=== PATIENT | female | born 1985 | race American Indian/Alaskan Native ===

== ENCOUNTER 2017-02-14 14:14 | Emergency (ER) | payer SELFPAY ==
[2017-02-14 15:00] LABS: Basophils % (Auto) 0.9 % (0.0-1.8); Hematocrit 40.3 % (30.3-42.9); Hemoglobin 13.5 gm/dl (10.1-14.3); Mean Corpuscular HGB Conc 34 % (30-34); Mean Corpuscular Hemoglobin 30 pg (28-32); Mean Corpuscular Volume 89 fl (79-97); Platelet Count 247 K/mm3 (140-440); Red Blood Count 4.52 M/mm3 (3.65-5.03); Red Cell Distribution Width 13.6 % (13.2-15.2); White Blood Count 5.8 K/mm3 (4.5-11.0)
[2017-02-14 15:12] LABS: Anion Gap 18 mmol/L; Blood Urea Nitrogen 12 mg/dL (7-17); Calcium 8.6 mg/dL (8.4-10.2); Carbon Dioxide 25 mmol/L (22-30); Chloride 99.1 mmol/L (98-107); Glucose 83 mg/dL (65-100); Sodium 138 mmol/L (137-145)
--- NOTE | 2017-02-14 21:23 | Emergency Department Report ---
ED Chest Pain HPI - General Chief Complaint: Extremity Injury, Lower Stated Complaint: LT LEG PAIN Time Seen by Provider: 02/14/17 21:00 Source: patient Mode of arrival: Ambulatory Limitations: No Limitations - History of Present Illness MD Complaint: chest pain -: Gradual Onset: during rest Pain Location: right chest Pain Radiation: none Severity: mild Severity scale (0 -10): 1 Quality: tightness Consistency: intermittent, now resolved Improves With: nothing Worsens With: nothing re: denies: nausea, vomting, diaphoresis, dyspnea, sense of impending doom Other Symptoms: denies: cough, fever, syncope, rash, acid taste in mouth, leg swelling, palpitations, burping Treatments Prior to Arrival: none - Related Data On Oral Contraceptives: No Home Medications Medication Instructions Recorded Confirmed Last Taken Vit-Fe Fumar-FA [ 1 tab PO QDAY 01/15/15 01/15/15 Unknown Vitamin] Previous Rx's Medication Instructions Recorded Last Taken Type Acetaminophen/Codeine [Tylenol #3] 1 tab PO Q6H PRN #12 tab 01/15/15 Unknown Rx Allergies Allergy/AdvReac Type Severity Reaction Status Date / Time nitrofurantoin AdvReac PALPITATION Verified 01/15/15 12:42 [From Macrobid] S/SWELL nitrofurantoin AdvReac PALPITATION Verified 01/15/15 12:42 macrocrystalline S/SWELL [From Macrobid] Heart Score - HEART Score History: Slightly suspicious EKG: Normal Age: < 45 Risk factors: No known risk factors Troponin: < normal limit HEART Score: 0 - Critical Actions Critical Actions: 0-3 pts:0.9-1.7%risk of adverse cardiac event.Candidate for discharge ED Review of Systems ROS: Stated complaint: LT LEG PAIN Other details as noted in HPI Comment: All other systems reviewed and negative ED Past Medical Hx - Past Medical History Previous Medical History?: No - Surgical History Past Surgical History?: No - Social History Smoking Status: Former Smoker Substance Use Type: None - Medications Home Medications: Home Medications Medication Instructions Recorded Confirmed Last Taken Type Acetaminophen/Codeine [Tylenol #3] 1 tab PO Q6H PRN #12 tab 01/15/15 Unknown Rx Vit-Fe Fumar-FA [ 1 tab PO QDAY 07/24/15 07/24/15 Unknown History Vitamin] ED Physical Exam - General Limitations: No Limitations General appearance: alert, in no apparent distress - Head Head exam: Present: atraumatic, normocephalic - Eye Eye exam: Present: normal appearance - ENT ENT exam: Present: mucous membranes moist - Neck Neck exam: Present: normal inspection - Respiratory Respiratory exam: Present: normal lung sounds bilaterally. Absent: respiratory distress - Cardiovascular Cardiovascular Exam: Present: regular rate, normal rhythm. Absent: systolic murmur, diastolic murmur, rubs, gallop - GI/Abdominal GI/Abdominal exam: Present: soft, normal bowel sounds - Extremities Exam Extremities exam: Present: normal inspection - Back Exam Back exam: Present: normal inspection - Neurological Exam Neurological exam: Present: alert, oriented X3 - Psychiatric Psychiatric exam: Present: normal affect, normal mood - Skin Skin exam: Present: warm, dry, intact, normal color. Absent: rash ED Course Vital Signs 02/14/17 14:21 Temperature 97.7 F Respiratory 20 Rate Blood Pressure 115/72 O2 Sat by Pulse 99 Oximetry RYLAN score - Rylan Score Age > 65: (0) No Aspirin use within the Past 7 Days: (0) No 3 or more CAD Risk Factors: (0) No 2 or more Angina events in past 24 hrs: (0) No Known CAD with more than 50% Stenosis: (0) No Elevated Cardiac Markers: (0) No ST Deviation Greater than 0.5mm: (0) No RYLAN Score: 0 ED Medical Decision Making - Lab Data Result diagrams: 02/14/17 14:43 02/14/17 14:43 Critical care attestation.: If time is entered above; I have spent that time in minutes in the direct care of this critically ill patient, excluding procedure time. ED Disposition Clinical Impression: Chest pain Disposition: DC-01 TO HOME OR SELFCARE Is pt being admited?: No Does the pt Need Aspirin: No Condition: Good Instructions: Chest Pain (ED) Referrals: PRIMARY CARE,MD [Primary Care Provider] - 3-5 Days Time of Disposition: 21:23
[2017-02-14 21:34] VITALS: BP 113/58
== END 2017-02-14 21:43 | disposition home or self-care (01) ==
LOC: ED 14:14
DX: R07.9 Chest pain, unspecified (principal)
CPT/HCPCS: 36415; 80048; 84484; 85025; 93005; 93010

== ENCOUNTER 2017-07-15 01:48 | Inpatient (IN) | payer OTHER ==
[2017-07-15 03:26] LABS: Basophils % (Auto) 0.5 % (0.0-1.8); Eosinophils # (Auto) 0.1 K/mm3 (0.0-0.4); Eosinophils % (Auto) 1.4 % (0.0-4.3); Hematocrit 37.4 % (30.3-42.9); Hemoglobin 12.8 gm/dl (10.1-14.3); Lymphocytes # (Auto) 2.1 K/mm3 (1.2-5.4); Lymphocytes % (Auto) 22.2 % (13.4-35.0); Mean Corpuscular HGB Conc 34 % (30-34); Mean Corpuscular Hemoglobin 30 pg (28-32); Mean Corpuscular Volume 89 fl (79-97); Monocytes # (Auto) 0.9 K/mm3 (0.0-0.8); Monocytes % (Auto) 9.4 % (0.0-7.3); Platelet Count 247 K/mm3 (140-440); Red Blood Count 4.23 M/mm3 (3.65-5.03); Red Cell Distribution Width 13.1 % (13.2-15.2)
[2017-07-15 03:45] LABS: Alanine Aminotransferase 10 units/L (7-56); BUN/Creatinine Ratio 18; Blood Urea Nitrogen 9 mg/dL (7-17); Hemolysis Index 1
[2017-07-15 04:07] LABS: Calcium 8.9 mg/dL (8.4-10.2)
[2017-07-15 08:21] LABS: Bilirubin,Urine NEG (Negative); Blood,Urine SM (Negative); Color,Urine Yellow (Yellow); Mucus,Urine FEW /HPF; Nitrite,Urine NEG (Negative); Protein,Urine <15 mg/dL mg/dL (Negative); Urobilinogen,Urine < 2.0 mg/dL (<2.0)
[2017-07-15 08:24] LABS: HCG Qualitative,Urine Negative (Negative)
[2017-07-15] MEDS ORDERED: ZOFRAN IV ONE (12:12)
[2017-07-15] MEDS ORDERED: SUBLIMAZE IV ONE (12:12)
--- NOTE | 2017-07-15 12:19 | Emergency Department Report ---
HPI - General Chief Complaint: Abdominal Pain Time Seen by Provider: 07/15/17 11:57 - HPI HPI: Room 23 The patient is a 32-year-old female presenting with a chief complaint of right flank pain. The patient states for the past 2 days she's had a constant sharp pain in her right flank. Patient is to nausea but denies vomiting. Patient denies dysuria and states she does not know if she's had material patient was recently on her cycle. Patient denies any history of fever or preceding trauma. The patient gives her pain a score of 10/10 Location: Right flank Duration: 2 days Quality: Sharp Severity: 10/10 Modifying factors: [see above] Context: [see above] Mode of transportation: [not driving] ED Past Medical Hx - Past Medical History Previous Medical History?: No - Surgical History Past Surgical History?: No - Family History Family history: no significant - Social History Smoking Status: Never Smoker Substance Use Type: None (denies illicit drug use), Alcohol (occasional) - Medications Home Medications: Home Medications Medication Instructions Recorded Confirmed Last Taken Type Acetaminophen/Codeine [Tylenol #3] 1 tab PO Q6H PRN #12 tab 01/15/15 Unknown Rx Vit-Fe Fumar-FA [ 1 tab PO QDAY 01/15/15 01/15/15 Unknown History Vitamin] ED Review of Systems ROS: Stated complaint: ABDOMINAL PAIN Other details as noted in HPI Constitutional: denies: fever Gastrointestinal: abdominal pain, nausea. denies: vomiting Genitourinary: denies: dysuria Musculoskeletal: back pain Physical Exam - Physical Exam Vital Signs: Vital Signs 07/15/17 01:55 Temperature 99.2 F Pulse Rate 86 Respiratory 17 Rate Blood Pressure 107/55 O2 Sat by Pulse 99 Oximetry Physical Exam: GENERAL: The patient is well-developed well-nourished female lying on stretcher in left lateral decubitus position appearing to be in moderate discomfort. [] HEENT: Normocephalic. Atraumatic. Extraocular motions are intact. Patient has moist mucous membranes. NECK: Supple. Trachea midline CHEST/LUNGS: Clear to auscultation. There is no respiratory distress noted. HEART/CARDIOVASCULAR: Regular. There is no tachycardia. There is no gallop rub or murmur. ABDOMEN: Abdomen is soft, with tenderness to palpation in the epigastric and right upper quadrants. There is no tenderness to palpation in the left upper quadrant, left lower quadrant, suprapubic region or right lower quadrant. Patient has normal bowel sounds. There is no abdominal distention. SKIN: There is no rash. There is no edema. There is no diaphoresis. NEURO: The patient is awake, alert, and oriented. The patient is cooperative. The patient has normal speech MUSCULOSKELETAL: There is right CVA tenderness. There is no evidence of acute injury. ED Course Vital Signs 07/15/17 01:55 Temperature 99.2 F Pulse Rate 86 Respiratory 17 Rate Blood Pressure 107/55 O2 Sat by Pulse 99 Oximetry ED Medical Decision Making - Lab Data Result diagrams: 07/15/17 01:57 07/15/17 02:21 Laboratory Tests 07/15/17 07/15/17 07/15/17 01:57 02:21 07:20 WBC 9.6 RBC 4.23 Hgb 12.8 Hct 37.4 MCV 89 MCH 30 MCHC 34 RDW 13.1 L Plt Count 247 Lymph % (Auto) 22.2 [place] % (Auto) 9.4 H Eos % (Auto) 1.4 Baso % (Auto) 0.5 Lymph # 2.1 [place] # 0.9 H Eos # 0.1 Baso # 0.0 Seg Neutrophils % 66.5 Seg Neutrophils # 6.4 Sodium 138 Potassium 4.3 Chloride 99.4 Carbon Dioxide 25 Anion Gap 18 BUN 9 Creatinine 0.5 L Estimated GFR > 60 BUN/Creatinine Ratio 18 Glucose 90 Calcium 8.9 Total Bilirubin 0.80 AST 12 ALT 10 Alkaline Phosphatase 55 Total Protein 7.0 Albumin 4.0 Albumin/Globulin Ratio 1.3 Urine Color Yellow Urine Turbidity Clear Urine pH 6.0 Ur Specific [employer] 1.013 Urine Protein <15 mg/dl Urine Glucose (UA) Neg Urine Ketones Neg Urine Blood Sm Urine Nitrite Neg Urine Bilirubin Neg Urine Urobilinogen < 2.0 Ur Leukocyte Esterase Neg Urine WBC (Auto) 1.0 Urine RBC (Auto) 3.0 U Epithel Cells (Auto) 2.0 Urine Mucus Few Urine HCG, Qual Negative - Radiology Data Radiology results: report reviewed (CT abdomen and pelvis), image reviewed (CT abdomen and pelvis) CT ABDOMEN PELVIS WITH AND WITHOUT CONTRAST: HISTORY: Right flank pain. COMPARISON: none. TECHNIQUE: Helical CT in 1.25mm intervals before and after IV contrast. Sagittal and coronal reconstructions. FINDINGS: Lung bases: There is patchy infiltrate in the posterior segment of the right lower lobe and trace right pleural effusion. There is also a nonocclusive pulmonary embolus identified at the right lung base. The left lung base is clear. Heart size is normal. Liver: Normal. Biliary system: Normal. Pancreas: Normal. Spleen: Normal. Kidneys/ureters/bladder: Normal. Adrenal glands: Normal. Aorta: Normal. Intestines: Normal. Appendix: Normal. Pelvic viscera: Normal. Ascites: None. Adenopathy: None. Musculoskeletal: Normal. IMPRESSION: A pulmonary embolus is partially imaged at the right lung base. There is patchy infiltrate in the right lower lobe and trace right pleural effusion. Consider further evaluation with CTA chest pulmonary embolus protocol. Unremarkable abdomen. These findings were discussed with Dr. Barron in the emergency department at 1315 hours. Transcribed By: TTR Dictated By: DAVID LERMA JR, MD Electronically Authenticated By: DAVID LERMA JR, MD Signed Date/Time: 07/15/171315 DD/ 13 TD/TT: 07/15/176 - Differential Diagnosis renal colic, cholelithiasis, aortic dissection, pyelonephritis Critical care attestation.: If time is entered above; I have spent that time in minutes in the direct care of this critically ill patient, excluding procedure time. ED Disposition Clinical Impression: Pulmonary embolus, right, Acute right flank pain Disposition: OP ADMIT IP TO THIS HOSP Is pt being admited?: Yes Does the pt Need Aspirin: No Condition: Fair Instructions: Abdominal Pain (ED) Referrals: PRIMARY CARE, [Primary Care Provider] - 3-5 Days Time of Disposition: 13:27 (hospitalist notified (Dr. Mason))
[2017-07-15] MEDS ORDERED: LOVENOX SUB-Q ONE (13:20)
--- NOTE | 2017-07-15 13:22 | Cat Scan Report ---
CT ABDOMEN PELVIS WITH AND WITHOUT CONTRAST: HISTORY: Right flank pain. COMPARISON: none. TECHNIQUE: Helical CT in 1.25mm intervals before and after IV contrast. Sagittal and coronal reconstructions. FINDINGS: Lung bases: There is patchy infiltrate in the posterior segment of the right lower lobe and trace right pleural effusion. There is also a nonocclusive pulmonary embolus identified at the right lung base. The left lung base is clear. Heart size is normal. Liver: Normal. Biliary system: Normal. Pancreas: Normal. Spleen: Normal. Kidneys/ureters/bladder: Normal. Adrenal glands: Normal. Aorta: Normal. Intestines: Normal. Appendix: Normal. Pelvic viscera: Normal. Ascites: None. Adenopathy: None. Musculoskeletal: Normal. IMPRESSION: A pulmonary embolus is partially imaged at the right lung base. There is patchy infiltrate in the right lower lobe and trace right pleural effusion. Consider further evaluation with CTA chest pulmonary embolus protocol. Unremarkable abdomen. These findings were discussed with Dr. Barron in the emergency department at 1315 hours.
[2017-07-15] MEDS ORDERED: DILAUDID IV ONE (13:24)
--- NOTE | 2017-07-15 13:24 | History and Physical Report ---
History of Present Illness Chief complaint: My side hurts History of present illness: 32 YO Female with no PMH presents to ED for evaluation. Pt states that she has experienced pain in her right side for the past 2 days. Pt states that pain is persistent, 10/10, sharp, and isolated to her right flank. Pain is worse with deep breathing, and not relieved with rest. Pt denies fever, chills, CP, Palpitations, Productive cough, hemoptysis, recent ill contacts, BRBPR, unintentional weight loss, or night sweats. Pt acknowledges family history of DVT/PE, and of family member due to PE within the past 3 months. Pt seen and evaluated in ED and found to have R Pulmonary Embolus. Pt underwent hypercoagulation workup, and then initiated on therapeutic anticoagulation. Pt admitted to medical floor. Past History Past Medical History: No medical history, other (reviewed) Past Surgical History: No surgical history, Other (reviewed) Social history: single, lives with family. denies: smoking, alcohol abuse, prescription drug abuse Family history: other (DVT, PE, secondary to PE,) Medications and Allergies Allergies Allergy/AdvReac Type Severity Reaction Status Date / Time nitrofurantoin AdvReac PALPITATION Verified 01/15/15 12:42 [From Macrobid] S/SWELL nitrofurantoin AdvReac PALPITATION Verified 01/15/15 12:42 macrocrystalline S/SWELL [From Macrobid] Home Medications Medication Instructions Recorded Confirmed Last Taken Type Acetaminophen/Codeine [Tylenol #3] 1 tab PO Q6H PRN #12 tab 01/15/15 Unknown Rx Vit-Fe Fumar-FA [ 1 tab PO QDAY 01/15/15 01/15/15 Unknown History Vitamin] Review of Systems Constitutional: no weight loss, no weight gain, no fever, no chills Ears, nose, mouth and throat: no ear pain, no ear discharge, no tinnitis, no decreased hearing, no nose pain Breasts: no change in shape, no swelling, no mass Cardiovascular: no chest pain, no orthopnea, no palpitations, no rapid/ irregular heart beat, no edema, no syncope, no lightheadedness, no shortness of breath Respiratory: no cough, no cough with sputum, no excessive sputum, no hemoptysis , no shortness of breath, no dyspnea on exertion Gastrointestinal: no abdominal pain, no nausea, no vomiting, no diarrhea, no constipation Genitourinary Female: flank pain, no dysmenorrhea, no pelvic pain, no menorrhagia, no dysuria, no urinary frequency, no urgency, no stress incontinence, no post void dribbling Rectal: no pain, no incontinence, no bleeding Musculoskeletal: no neck stiffness, no neck pain, no shooting arm pain, no arm numbness/tingling Integumentary: no rash, no pruritis, no redness, no sores, no wounds Neurological: no head injury, no transient paralysis, no paralysis, no weakness , no parathesias, no numbness, no tingling Psychiatric: no anxiety, no memory loss, no change in sleep habits, no sleep disturbances, no insomnia, no hypersomnia, no change in appetite Endocrine: no cold intolerance, no heat intolerance, no polyphagia, no excessive thirst, no polydipsia, no polyuria, no nocturia, no excessive sweating Hematologic/Lymphatic: no easy bruising, no easy bleeding, no lymphadenopathy, no lymphedema Allergic/Immunologic: no urticaria, no allergic rhinitis, no wheezing, no persistent infections, no anaphylaxis Exam - Constitutional Vitals: Temp Pulse Resp BP Pulse Ox 98.5 F 89 18 120/65 98 07/15/17 12:30 07/15/17 12:30 07/15/17 12:30 07/15/17 12:30 07/15/17 12:30 General appearance: Present: mild distress - EENT Eyes: Present: PERRL ENT: hearing intact, clear oral mucosa - Neck Neck: Present: supple, normal ROM - Respiratory Respiratory effort: normal Respiratory: bilateral: CTA - Cardiovascular Heart Sounds: Present: S1 & S2. Absent: rub, click - Extremities Extremities: pulses symmetrical, No edema Peripheral Pulses: within normal limits - Abdominal General gastrointestinal: Present: soft, non-tender, non-distended, normal bowel sounds Female genitourinary: Present: normal - Integumentary Integumentary: Present: clear, warm, dry - Musculoskeletal Musculoskeletal: gait normal, strength equal bilaterally - Psychiatric Psychiatric: appropriate mood/affect, intact judgment & insight - Neurologic Neurologic: CNII-XII intact, moves all extremities Results - Labs CBC & Chem 7: 07/15/17 01:57 07/15/17 02:21 Labs: Abnormal lab results 07/15/17 07/15/17 Range/Units 01:57 02:21 RDW 13.1 L (13.2-15.2) % [place] % (Auto) 9.4 H (0.0-7.3) % [place] # 0.9 H (0.0-0.8) K/mm3 Creatinine 0.5 L (0.7-1.2) mg/dL Assessment and Plan - Patient Problems (1) Pulmonary embolus, right Current Visit: Yes Status: Acute Plan to address problem: Supplemental oxygen, antithrombin 3, Protein c and S, Factor V, Therapeutic anticoagulation after hypercoagulation labs drawn. (2) Acute right flank pain Current Visit: Yes Status: Acute Plan to address problem: Pain control, supportive care, early ambulation, (3) Pneumonia Current Visit: Yes Status: Acute Qualifiers: Laterality: bilateral Lung location: lower lobe of lung Plan to address problem: Iv abx, supplemental oxygen, nebulizer therapy, blood cultures, chest x ray (4) DVT prophylaxis Current Visit: Yes Status: Acute
[2017-07-15] MEDS ORDERED: MILK OF MAGNESIA PO PRN (13:31)
[2017-07-15] MEDS ORDERED: DULCOLAX PR PRN (13:31)
[2017-07-15] MEDS ORDERED: TYLENOL PO PRN (13:31)
--- NOTE | 2017-07-15 15:28 | XRay Report ---
FINAL REPORT EXAM: XR CHEST 1V AP HISTORY: dypsnea TECHNIQUE: Portable upright frontal chest x-ray Comparison: None FINDINGS: Normal heart size. Lung volumes are low. There are hypoventilatory changes in the lung bases. Superimposed infectious infiltrates cannot be excluded. There is mild obscuration of the lateral left hemidiaphragm. IMPRESSION: Hypoventilated exam with possible bilateral basal infiltrates. Left hemidiaphragm is partially obscured laterally. Recommend follow-up exam be performed with larger inspiratory volumes, two views. There are no priors for comparison.
[2017-07-15] MEDS ORDERED: ZITHROMAX 500 MG in NACL 0.9% 250ML 250 ML IV SCH (17:00)
[2017-07-15] MEDS ORDERED: ROCEPHIN/NS 1 GM/50 ML 1 GM/50 ML BAG IV SCH (18:00)
[2017-07-15] MEDS: ELIQUIS PO SCH ×2 (18:31→22:08)
[2017-07-15] MEDS: PERCOCET 5/325 PO PRN (19:14)
[2017-07-15] MEDS: cefTRIAXone 1 GM in NACL 0.9% 20 ML IV SCH (20:11)
[2017-07-16] MEDS: PERCOCET 5/325 PO PRN ×3 (01:21→22:38)
[2017-07-16] MEDS: ZOFRAN IV PRN (01:21)
--- NOTE | 2017-07-16 08:59 | Progress Note ---
<JOSE MANRIQUEZ - Last Filed: 07/16/17 11:16> Assessment and Plan Assessment and plan: 32 YO AA woman with no PMH presents for pain in her right side for the past 2 days. Pt states that pain is persistent, 10/10, sharp, and isolated to her right flank. Pain is worse with deep breathing, and not relieved with rest. Pt denies fever, chills, CP, Palpitations, Productive cough, hemoptysis, recent ill contacts, BRBPR, unintentional weight loss, or night sweats. Pt acknowledges family history of DVT/PE, and of family member due to PE within the past 3 months. Pt seen and evaluated in ED and found to have R Pulmonary Embolus. Pt underwent hypercoagulation workup, and then initiated on therapeutic anticoagulation. Pulmonary embolus, right Continue Eliquis, Supplemental oxygen PRN antithrombin 3, Protein c and S, Factor V, doppler LE, CTA and Echo ordered Acute right flank pain Secondary to PE, Pain control, supportive care, early ambulation Pneumonia Contiue Iv abx, supplemental oxygen, Blood cultures pending DVT prophylaxis On Eliquis History Interval history: The patient was seen and examined. She continues to complain of right-sided flank pain currently 7 out of 10. She denies chest pain, shortness of breath, nausea vomiting. Labs, imaging and nursing notes reviewed. Hospitalist Physical - Constitutional Vitals: Temp Pulse Resp BP Pulse Ox 98.1 F 82 20 106/67 95 07/16/17 03:37 07/16/17 03:37 07/16/17 08:41 07/16/17 03:37 07/16/17 03:37 General appearance: Present: mild distress, well-nourished - EENT Eyes: Present: PERRL, EOM intact ENT: hearing intact, clear oral mucosa, dentition normal - Neck Neck: Present: supple, normal ROM - Respiratory Respiratory effort: normal Respiratory: bilateral: CTA - Cardiovascular Rhythm: regular Heart Sounds: Present: S1 & S2 - Extremities Extremities: no ischemia, No edema - Abdominal General gastrointestinal: soft, non-tender, non-distended - Integumentary Integumentary: Present: clear, warm, dry - Psychiatric Psychiatric: appropriate mood/affect, cooperative - Neurologic Neurologic: CNII-XII intact, moves all extremities - Allied Health Allied health notes reviewed: nursing Results - Labs CBC & Chem 7: 07/15/17 01:57 07/15/17 02:21 Labs: Laboratory Last Values WBC 9.6 K/mm3 (4.5-11.0) 07/15/17 01:57 RBC 4.23 M/mm3 (3.65-5.03) 07/15/17 01:57 Hgb 12.8 gm/dl (10.1-14.3) 07/15/17 01:57 Hct 37.4 % (30.3-42.9) 07/15/17 01:57 MCV 89 fl (79-97) 07/15/17 01:57 MCH 30 pg (28-32) 07/15/17 01:57 MCHC 34 % (30-34) 07/15/17 01:57 RDW 13.1 % (13.2-15.2) L 07/15/17 01:57 Plt Count 247 K/mm3 (140-440) 07/15/17 01:57 Lymph % (Auto) 22.2 % (13.4-35.0) 07/15/17 01:57 [place] % (Auto) 9.4 % (0.0-7.3) H 07/15/17 01:57 Eos % (Auto) 1.4 % (0.0-4.3) 07/15/17 01:57 Baso % (Auto) 0.5 % (0.0-1.8) 07/15/17 01:57 Lymph # 2.1 K/mm3 (1.2-5.4) 07/15/17 01:57 [place] # 0.9 K/mm3 (0.0-0.8) H 07/15/17 01:57 Eos # 0.1 K/mm3 (0.0-0.4) 07/15/17 01:57 Baso # 0.0 K/mm3 (0.0-0.1) 07/15/17 01:57 Seg Neutrophils % 66.5 % (40.0-70.0) 07/15/17 01:57 Seg Neutrophils # 6.4 K/mm3 (1.8-7.7) 07/15/17 01:57 Sodium 138 mmol/L (137-145) 07/15/17 02:21 Potassium 4.3 mmol/L (3.6-5.0) 07/15/17 02:21 Chloride 99.4 mmol/L (98-107) 07/15/17 02:21 Carbon Dioxide 25 mmol/L (22-30) 07/15/17 02:21 Anion Gap 18 mmol/L 07/15/17 02:21 BUN 9 mg/dL (7-17) 07/15/17 02:21 Creatinine 0.5 mg/dL (0.7-1.2) L 07/15/17 02:21 Estimated GFR > 60 ml/min 07/15/17 02:21 BUN/Creatinine Ratio 18 % 07/15/17 02:21 Glucose 90 mg/dL (65-100) 07/15/17 02:21 Calcium 8.9 mg/dL (8.4-10.2) 07/15/17 02:21 Total Bilirubin 0.80 mg/dL (0.1-1.2) 07/15/17 02:21 AST 12 units/L (5-40) 07/15/17 02:21 ALT 10 units/L (7-56) 07/15/17 02:21 Alkaline Phosphatase 55 units/L (35-129) 07/15/17 02:21 Total Protein 7.0 g/dL (6.3-8.2) 07/15/17 02:21 Albumin 4.0 g/dL (3.9-5) 07/15/17 02:21 Albumin/Globulin Ratio 1.3 % 07/15/17 02:21 Lipase 24 units/L (13-60) 07/15/17 02:21 Urine Color Yellow (Yellow) 07/15/17 07:20 Urine Turbidity Clear (Clear) 07/15/17 07:20 Urine pH 6.0 (5.0-7.0) 07/15/17 07:20 Ur Specific [place] 1.013 (1.003-1.030) 07/15/17 07:20 Urine Protein <15 mg/dl mg/dL (Negative) 07/15/17 07:20 Urine Glucose (UA) Neg mg/dL (Negative) 07/15/17 07:20 Urine Ketones Neg mg/dL (Negative) 07/15/17 07:20 Urine Blood Sm (Negative) 07/15/17 07:20 Urine Nitrite Neg (Negative) 07/15/17 07:20 Urine Bilirubin Neg (Negative) 07/15/17 07:20 Urine Urobilinogen < 2.0 mg/dL (<2.0) 07/15/17 07:20 Ur Leukocyte Esterase Neg (Negative) 07/15/17 07:20 Urine WBC (Auto) 1.0 /HPF (0.0-6.0) 07/15/17 07:20 Urine RBC (Auto) 3.0 /HPF (0.0-6.0) 07/15/17 07:20 U Epithel Cells (Auto) 2.0 /HPF (0-13.0) 07/15/17 07:20 Urine Mucus Few /HPF 07/15/17 07:20 Urine HCG, Qual Negative (Negative) 07/15/17 07:20 <CHASE JJ - Last Filed: 07/16/17 18:05> Hospitalist Physical - Constitutional Vitals: Temp Pulse Resp BP Pulse Ox 99.2 F 96 H 20 108/68 96 07/16/17 15:45 07/16/17 15:45 07/16/17 16:22 07/16/17 15:45 07/16/17 15:45 Results - Labs CBC & Chem 7: 07/15/17 01:57 07/15/17 02:21 Labs: Laboratory Last Values WBC 9.6 K/mm3 (4.5-11.0) 07/15/17 01:57 RBC 4.23 M/mm3 (3.65-5.03) 07/15/17 01:57 Hgb 12.8 gm/dl (10.1-14.3) 07/15/17 01:57 Hct 37.4 % (30.3-42.9) 07/15/17 01:57 MCV 89 fl (79-97) 07/15/17 01:57 MCH 30 pg (28-32) 07/15/17 01:57 MCHC 34 % (30-34) 07/15/17 01:57 RDW 13.1 % (13.2-15.2) L 07/15/17 01:57 Plt Count 247 K/mm3 (140-440) 07/15/17 01:57 Lymph % (Auto) 22.2 % (13.4-35.0) 07/15/17 01:57 [place] % (Auto) 9.4 % (0.0-7.3) H 07/15/17 01:57 Eos % (Auto) 1.4 % (0.0-4.3) 07/15/17 01:57 Baso % (Auto) 0.5 % (0.0-1.8) 07/15/17 01:57 Lymph # 2.1 K/mm3 (1.2-5.4) 07/15/17 01:57 [place] # 0.9 K/mm3 (0.0-0.8) H 07/15/17 01:57 Eos # 0.1 K/mm3 (0.0-0.4) 07/15/17 01:57 Baso # 0.0 K/mm3 (0.0-0.1) 07/15/17 01:57 Seg Neutrophils % 66.5 % (40.0-70.0) 07/15/17 01:57 Seg Neutrophils # 6.4 K/mm3 (1.8-7.7) 07/15/17 01:57 Sodium 138 mmol/L (137-145) 07/15/17 02:21 Potassium 4.3 mmol/L (3.6-5.0) 07/15/17 02:21 Chloride 99.4 mmol/L (98-107) 07/15/17 02:21 Carbon Dioxide 25 mmol/L (22-30) 07/15/17 02:21 Anion Gap 18 mmol/L 07/15/17 02:21 BUN 9 mg/dL (7-17) 07/15/17 02:21 Creatinine 0.5 mg/dL (0.7-1.2) L 07/15/17 02:21 Estimated GFR > 60 ml/min 07/15/17 02:21 BUN/Creatinine Ratio 18 % 07/15/17 02:21 Glucose 90 mg/dL (65-100) 07/15/17 02:21 Calcium 8.9 mg/dL (8.4-10.2) 07/15/17 02:21 Total Bilirubin 0.80 mg/dL (0.1-1.2) 07/15/17 02:21 AST 12 units/L (5-40) 07/15/17 02:21 ALT 10 units/L (7-56) 07/15/17 02:21 Alkaline Phosphatase 55 units/L (35-129) 07/15/17 02:21 Total Protein 7.0 g/dL (6.3-8.2) 07/15/17 02:21 Albumin 4.0 g/dL (3.9-5) 07/15/17 02:21 Albumin/Globulin Ratio 1.3 % 07/15/17 02:21 Lipase 24 units/L (13-60) 07/15/17 02:21 Urine Color Yellow (Yellow) 07/15/17 07:20 Urine Turbidity Clear (Clear) 07/15/17 07:20 Urine pH 6.0 (5.0-7.0) 07/15/17 07:20 Ur Specific [place] 1.013 (1.003-1.030) 07/15/17 07:20 Urine Protein <15 mg/dl mg/dL (Negative) 07/15/17 07:20 Urine Glucose (UA) Neg mg/dL (Negative) 07/15/17 07:20 Urine Ketones Neg mg/dL (Negative) 07/15/17 07:20 Urine Blood Sm (Negative) 07/15/17 07:20 Urine Nitrite Neg (Negative) 07/15/17 07:20 Urine Bilirubin Neg (Negative) 07/15/17 07:20 Urine Urobilinogen < 2.0 mg/dL (<2.0) 07/15/17 07:20 Ur Leukocyte Esterase Neg (Negative) 07/15/17 07:20 Urine WBC (Auto) 1.0 /HPF (0.0-6.0) 07/15/17 07:20 Urine RBC (Auto) 3.0 /HPF (0.0-6.0) 07/15/17 07:20 U Epithel Cells (Auto) 2.0 /HPF (0-13.0) 07/15/17 07:20 Urine Mucus Few /HPF 07/15/17 07:20 Urine HCG, Qual Negative (Negative) 07/15/17 07:20
[2017-07-16] MEDS: ELIQUIS PO SCH ×2 (09:14→21:52)
[2017-07-16] MEDS: MORPHINE IV PRN ×2 (16:22→21:32)
[2017-07-16] MEDS: cefTRIAXone 1 GM in NACL 0.9% 20 ML IV SCH (17:57)
[2017-07-16] MEDS: ZITHROMAX PO SCH (17:57)
--- NOTE | 2017-07-16 18:26 | Cat Scan Report ---
FINAL REPORT EXAM: CT ANGIO CHEST HISTORY: PE TECHNIQUE: CT angiogram chest with intravenous contrast PRIORS: None. FINDINGS: There is a nonocclusive filling defect seen within a right lower lobe posterior pulmonary artery (axial slice 69-72). No additional pulmonary filling defects are identified. There is atelectasis present within the posterior right lower lobe along with a small to moderate pleural effusion. There is mild atelectasis at the left lung base Evidence for mediastinal mass or pathologic lymph node enlargement . Thoracic aorta is normal in caliber. No acute abnormality identified in the visualized portion of the upper abdomen IMPRESSION: Findings are consistent with pulmonary embolus with a nonocclusive embolus identified within a right lower lobe segmental and subsegmental branch. No large central emboli additionally identified. Acuity is indeterminate could be acute or subacute Bilateral lower lobe infiltrate/atelectasis greater on the right Small right pleural effusion
--- NOTE | 2017-07-16 21:08 | Consultation ---
History of Present Illness - Reason for Consult Consult date: 07/16/17 pulm embolism Requesting physician: CLARA BAILEY - History of Present Illness Thank you for this consult, patient seen/examined, record reviewed, case d/w her , and the family in the room. Kindly asked to see for reason of acute pulm embolism. She denies any propagating factors. She did claim that her first cousin recently of PE. She has since been started on Eloquis by the primary team.I have discussed different out patient treatment options with her.will continue to monitor along with you. Past History Past Medical History: No medical history, other (reviewed) Past Surgical History: No surgical history, Other (reviewed) Social history: single, lives with family. denies: smoking, alcohol abuse, prescription drug abuse Family history: other (DVT, PE, secondary to PE,) Medications and Allergies Allergies Allergy/AdvReac Type Severity Reaction Status Date / Time nitrofurantoin AdvReac PALPITATION Verified 01/15/15 12:42 [From Macrobid] S/SWELL nitrofurantoin AdvReac PALPITATION Verified 01/15/15 12:42 macrocrystalline S/SWELL [From Macrobid] Home Medications Medication Instructions Recorded Confirmed Last Taken Type No Known Home Medications [No 07/16/17 07/16/17 Unknown History Reported Home Medications] Active Meds: Active Medications Acetaminophen (Tylenol) 650 mg PO Q4H PRN PRN Reason: Pain MILD(1-3)/Fever >100.5/[place] Apixaban (Eliquis) 10 mg PO Q12HR SOFÍA PRN Reason: Protocol Stop: 07/21/17 22:01 Last Admin: 07/16/17 09:14 Dose: 10 mg Apixaban (Eliquis) 5 mg PO Q12HR SOFÍA Azithromycin (Zithromax) 500 mg PO QDAY [facility] Last Admin: 07/16/17 17:57 Dose: 500 mg Bisacodyl (Dulcolax) 10 mg MI QDAY PRN PRN Reason: Constipation unrelieved by MOM Ceftriaxone Sodium 1 gm/ (Sodium Chloride) 20 mls @ 20 mls/10 min IV Q24H [facility] Last Admin: 07/16/17 17:57 Dose: 20 mls/10 min Magnesium Hydroxide (Milk Of Magnesia) 30 ml PO Q4H PRN PRN Reason: Constipation Morphine Sulfate (Morphine) 1 mg IV Q6H PRN PRN Reason: Pain, Moderate (4-6) Last Admin: 07/16/17 16:22 Dose: 1 mg Ondansetron HCl (Zofran) 4 mg IV Q8H PRN PRN Reason: N/V unrelieved by Reglan Last Admin: 07/16/17 01:21 Dose: 4 mg Oxycodone/Acetaminophen (Percocet 5/325) 1 tab PO Q6H PRN PRN Reason: Pain, Moderate (4-6) Last Admin: 07/16/17 09:15 Dose: 1 tab Review of Systems Constitutional: weight gain, poor appetite Breasts: deferred Exam - Constitutional Vitals: Temp Pulse Resp BP Pulse Ox 98.7 F 98 H 20 114/70 97 07/16/17 19:48 07/16/17 19:48 07/16/17 19:48 07/16/17 19:48 07/16/17 19:48 General appearance: Present: mild distress, well-nourished - EENT Eyes: Present: PERRL ENT: hearing intact, clear oral mucosa - Neck Neck: Present: supple, normal ROM - Respiratory Respiratory: bilateral: diminished - Cardiovascular Heart Sounds: Present: S1 & S2. Absent: rub, click - Extremities Extremities: pulses symmetrical, No edema Peripheral Pulses: within normal limits - Abdominal General gastrointestinal: Present: soft, non-tender, non-distended, normal bowel sounds Female genitourinary: Present: deferred - Rectal Rectal Exam: deferred - Integumentary Integumentary: Present: clear, warm, dry - Musculoskeletal Musculoskeletal: gait normal, strength equal bilaterally - Psychiatric Psychiatric: appropriate mood/affect, intact judgment & insight - Neurologic Neurologic: CNII-XII intact, moves all extremities Results - Labs CBC & Chem 7: 07/15/17 01:57 07/15/17 02:21 Assessment and Plan - Patient Problems (1) Acute right flank pain Current Visit: Yes Status: Acute Plan to address problem: treat the underlying problem of PE. (2) Pulmonary embolus, right Current Visit: Yes Status: Acute Plan to address problem: Anti coagulation. work up has already begun./
[2017-07-17] MEDS: MORPHINE IV PRN (06:28)
[2017-07-17] MEDS: PERCOCET 5/325 PO PRN ×2 (07:26→13:29)
[2017-07-17] MEDS: ELIQUIS PO SCH ×2 (08:53→10:00)
[2017-07-17] MEDS: ZOFRAN IV PRN (08:53)
[2017-07-17] MEDS: ZITHROMAX PO SCH ×2 (08:54→10:00)
[2017-07-17 14:38] VITALS: BP 104/54
--- NOTE | 2017-07-17 15:04 | Discharge Summary ---
<JOSE MANRIQUEZ - Last Filed: 07/17/17 15:10> Providers - Providers Date of Admission: 07/15/17 13:31 Attending physician: CHASE JJ 07/16/17 11:10 Consult to Physician [CONS] Routine Consulting Provider: ALICIA MESSINA Reason For Exam: PE Place consult to:: dr. messina Notified:: Phone number called:: [phone] Was contact made?: Yes If yes, spoke with:: dr. messina Time called:: 16:22 Primary care physician: NIA LORENZO Hospitalization Condition: Fair Pertinent studies: CT of abdomen and pelvis showed a pulmonary embolus right lung base CTA chest confirmed pulmonary embolus with a nonocclusive embolus in the right lower lobe, bilateral lower lobe infiltrates/atelectasis Chest x-ray revealed hypoventilation exam with possible bilateral basal infiltrates, left hemidiaphragm partially obscured laterally echocardiogram showed global left ventricular systolic function normal with ejection fraction 55-60% Hospital course: 32 YO AA woman with no PMH presents for pain in her right side for the past 2 days. Pt states that pain is persistent, 10/10, sharp, and isolated to her right flank. Pain is worse with deep breathing, and not relieved with rest. Pt denies fever, chills, CP, Palpitations, Productive cough, hemoptysis, recent ill contacts, BRBPR, unintentional weight loss, or night sweats. Pt acknowledges family history of DVT/PE, and of family member due to PE within the past 3 months. Pt seen and evaluated in ED and found to have R Pulmonary Embolus. Patient was treated for pulmonary embolism with Eliquis. She was also treated for pneumonia with IV antibiotics and supplemental oxygen. Patient became clinically stable and was discharge with instructions to follow up with primary care for continued anticoagulation therapy. Discharge diagnoses Right pulmonary embolus Acute right flank pain Pneumonia DVT prophylaxis Disposition: - TO HOME OR SELFCARE Exam - Constitutional Vitals: Temp Pulse Resp BP Pulse Ox 99.0 F 88 15 104/54 97 07/17/17 14:34 07/17/17 14:34 07/17/17 14:34 07/17/17 14:34 07/17/17 14:34 Plan Follow up with: PRIMARY MD NYLA [Referring] - 3-5 Days ONYEGBULA,ALICIA C, DO [Staff Physician] - 7 Days Prescriptions: Apixaban [Eliquis] 5 mg PO Q12HR #52 tablet Azithromycin [Zithromax Z-MADYSON] 0 mg PO DAILY #1 tab Famotidine [Pepcid] 20 mg PO BID #20 tablet oxyCODONE /ACETAMINOPHEN [Percocet 5/325 mg] 1 tab PO Q6H PRN #20 tablet PRN Reason: Pain, Moderate (4-6) Zolpidem [Ambien] 5 mg PO QHS PRN #5 tablet PRN Reason: Sleep <CHASE JJ - Last Filed: 07/17/17 16:13> Providers - Providers Date of Admission: 07/15/17 13:31 Date of discharge: 07/17/17 Attending physician: CHASE JJ 07/16/17 11:10 Consult to Physician [CONS] Routine Consulting Provider: ALICIA MESSINA Reason For Exam: PE Place consult to:: dr. messina Notified:: Phone number called:: [phone] Was contact made?: Yes If yes, spoke with:: dr. messina Time called:: 16:22 Primary care physician: NIA LORENZO Hospitalization Time spent for discharge: 32 min Core Measure Documentation - Palliative Care Palliative Care/ Comfort Measures: Not Applicable - Core Measures Any of the following diagnoses?: DVT/PE - VTE Discharge Requirements Deep Vein Thrombosis/Pulmonary Embolism Present on Admission: Yes Has pt received <5 days of overlap therapy or INR<2.0: Yes Anticoagulant overlap therapy prescribed at discharge: No Contraindication No Overlap Therapy order at DC: Not Indicated (Patient on Eliquis) Exam - Constitutional Vitals: Temp Pulse Resp BP Pulse Ox 99.0 F 88 15 104/54 97 07/17/17 14:34 07/17/17 14:34 07/17/17 14:34 07/17/17 14:34 07/17/17 14:34 General appearance: Present: no acute distress, well-nourished - EENT Eyes: Present: PERRL, EOM intact - Neck Neck: Present: supple, normal ROM - Respiratory Respiratory effort: normal Respiratory: right: diminished, negative: rales, rhonchi, wheezing - Cardiovascular Rhythm: regular Heart Sounds: Present: S1 & S2 - Extremities Extremities: no ischemia, No edema - Abdominal General gastrointestinal: Present: soft, non-tender, non-distended, normal bowel sounds - Integumentary Integumentary: Present: clear, warm - Musculoskeletal Musculoskeletal: strength equal bilaterally - Psychiatric Psychiatric: appropriate mood/affect, cooperative - Neurologic Neurologic: CNII-XII intact, moves all extremities Plan Activity: advance as tolerated Diet: regular Additional Instructions: If you have severe chest pain or shortness of breath contact M.D. or go to emergency room as needed. Advised to do incentive spirometry as tolerated. Advised 3 days rest, instructed to check with primary care physician for further recommendations
--- NOTE | 2017-07-18 12:20 | Vascular Lab Report ---
LOWER EXTREMITY VENOUS DUPLEX: REASON FOR EXAM: Pulmonary embolism, evaluate for deep venous thrombosis. COMMENTS ON THE RIGHT: All veins visualized are freely compressible without evidence of internal echogenicity. Flow is spontaneous and phasic throughout. COMMENTS ON THE LEFT: All veins visualized are freely compressible without evidence of internal echogenicity. Flow is spontaneous and phasic throughout. IMPRESSION: No evidence of acute or chronic deep venous thrombosis in either lower extremity.
[2017-07-18 13:14] LABS: Protein S, Free 85 % normal (50-147); Protein S, Total 110 % (70-140)
[2017-07-18 22:22] LABS: dRVVT Confirm Negative (Negative)
[2017-07-22] MEDS ORDERED: ELIQUIS PO SCH (10:00)
== END 2017-07-17 17:00 | disposition home or self-care (01) | DRG 175 ==
LOC: ED 01:48 → 3A 13:31
PROVIDERS: ADMIT Internal Medicine; ATTEND Internal Medicine
DX: I26.99 Other pulmonary embolism without acute cor pulmonale (principal); J18.9 Pneumonia, unspecified organism; Z88.8 Allergy status to other drugs, medicaments and biological substances; Z84.89 Family history of other specified conditions
CPT/HCPCS: 36415; 71045; 71275; 74178; 80053; 81001; 81025; 83516; 83690; 85025; 85220; 85301; 85305; 85613; 87040; 93306; 93970; 96374; 96375; J0456; J0696; J1170; J1650; J2270; J2405; J3010; J7050; Q9967

== ENCOUNTER 2017-08-12 16:41 | Emergency (ER) | payer OTHER ==
[2017-08-12] MEDS ORDERED: BENADRYL IV ONE (18:02)
[2017-08-12] MEDS ORDERED: PROVENTIL IH ONE (18:02)
[2017-08-12] MEDS ORDERED: TYLENOL PO ONE ×2 (18:02→20:43)
[2017-08-12] MEDS ORDERED: NACL 0.9% 500 ML 500 ML IV ONE (18:02)
[2017-08-12] MEDS ORDERED: REGLAN IV ONE (18:02)
--- NOTE | 2017-08-12 18:03 | Emergency Department Report ---
ED General Adult HPI - General Chief complaint: Dyspnea/Respdistress Stated complaint: CHEST PAIN,SOB,DIZZINESS Time Seen by Provider: 08/12/17 17:44 Source: patient, RN notes reviewed, old records reviewed Mode of arrival: Ambulatory Limitations: No Limitations - History of Present Illness Initial comments: This is a 32-year-old female who is previously unknown to this provider, patient has a past medical history of unprovoked pulmonary embolus, recently admitted to the hospital for same, was discharged on anticoagulation, eliquis, in addition to Ambien, and Percocet, and azithromycin. Patient presents to the ER with 1 week of cough. It is associated with chest wall pain. The chest wall pain does not radiate to the back, arms or neck. There is no vomiting or diaphoresis. The pain also increases with palpation. Patient reports not taking her anticoagulation for the past 2 or 3 days because she ran out of it, she was supposed to follow-up with her outpatient bundle tier and labeler, Dr. David Amaya, but indicates she was unable to because of financial reasons. Apparently, the patient had a first cousin of a pulmonary embolus recently, the patient also complains of dizziness. The dizziness is described as a sensation of "head swimming" when she gets up. There is no ataxia, there is no vertigo, this is been going on for a few days up to a week, and is associated with a cough. Patient denies hematemesis, bright red blood per rectum, urinary symptoms, indicates she is not . Patient did have a hypercoagulable workup while here in the hospital, she was found to be negative for factor V Leiden, but did have an elevated/abnormal lupus anticoagulant level. -: Gradual, days(s) Location: chest Radiation: non-radiation Quality: aching Consistency: intermittent Improves with: rest Worsens with: movement Associated Symptoms: chest pain, cough, headaches, shortness of breath, weakness. denies: confusion, diaphoresis, fever/chills, loss of appetite, malaise, nausea/vomiting, rash, seizure, syncope - Related Data Previous Rx's Medication Instructions Recorded Last Taken Type Apixaban [Eliquis] 5 mg PO Q12HR #52 tablet 07/17/17 Unknown Rx Famotidine [Pepcid] 20 mg PO BID #20 tablet 07/17/17 Unknown Rx Zolpidem [Ambien] 5 mg PO QHS PRN #5 tablet 07/17/17 Unknown Rx oxyCODONE /ACETAMINOPHEN [Percocet 1 tab PO Q6H PRN #20 tablet 07/17/17 Unknown Rx 5/325 mg] Acetaminophen [Tylenol Arthritis] 650 mg PO Q6HR PRN #30 tablet.er 08/12/17 Unknown Rx Albuterol Sulfate [Proair 90 mcg IH Q4HR PRN #2 aer.pow.ba 08/12/17 Unknown Rx Respiclick] Doxycycline [Vibramycin] 100 mg PO Q12HR #9 capsule 08/12/17 Unknown Rx Enoxaparin [Lovenox] 80 mg SQ Q12HR #28 syringe 08/12/17 Unknown Rx Ondansetron [Zofran Odt] 4 mg PO Q8HR PRN #20 tab.rapdis 08/12/17 Unknown Rx Allergies Allergy/AdvReac Type Severity Reaction Status Date / Time nitrofurantoin AdvReac PALPITATION Verified 01/15/15 12:42 [From Macrobid] S/SWELL nitrofurantoin AdvReac PALPITATION Verified 01/15/15 12:42 macrocrystalline S/SWELL [From Macrobid] ED Review of Systems ROS: Stated complaint: CHEST PAIN,SOB,DIZZINESS Other details as noted in HPI ED Past Medical Hx - Past Medical History Previous Medical History?: Yes Additional medical history: PE - Surgical History Past Surgical History?: No - Social History Smoking Status: Former Smoker Substance Use Type: Alcohol, Marijuana, Prescribed - Medications Home Medications: Home Medications Medication Instructions Recorded Confirmed Last Taken Type Apixaban [Eliquis] 5 mg PO Q12HR #52 tablet 07/17/17 08/12/17 Unknown Rx Famotidine [Pepcid] 20 mg PO BID #20 tablet 07/17/17 08/12/17 Unknown Rx Zolpidem [Ambien] 5 mg PO QHS PRN #5 tablet 07/17/17 08/12/17 Unknown Rx oxyCODONE /ACETAMINOPHEN [Percocet 1 tab PO Q6H PRN #20 tablet 07/17/17 Unknown Rx 5/325 mg] Acetaminophen [Tylenol Arthritis] 650 mg PO Q6HR PRN #30 tablet.er 08/12/17 Unknown Rx Albuterol Sulfate [Proair 90 mcg IH Q4HR PRN #2 aer.pow.ba 08/12/17 Unknown Rx Respiclick] Doxycycline [Vibramycin] 100 mg PO Q12HR #9 capsule 08/12/17 Unknown Rx Enoxaparin [Lovenox] 80 mg SQ Q12HR #28 syringe 08/12/17 Unknown Rx Ondansetron [Zofran Odt] 4 mg PO Q8HR PRN #20 tab.rapdis 08/12/17 Unknown Rx ED Physical Exam - General Limitations: No Limitations General appearance: alert, in no apparent distress - Head Head exam: Present: atraumatic, normocephalic - Eye Eye exam: Present: normal appearance, EOMI. Absent: nystagmus - ENT ENT exam: Present: normal exam, normal orophraynx, mucous membranes moist, normal external ear exam - Neck Neck exam: Present: normal inspection, full ROM - Respiratory Respiratory exam: Present: normal lung sounds bilaterally, chest wall tenderness. Absent: respiratory distress - Cardiovascular Cardiovascular Exam: Present: regular rate, normal rhythm, normal heart sounds. Absent: systolic murmur, diastolic murmur, rubs, gallop - GI/Abdominal GI/Abdominal exam: Present: soft, normal bowel sounds. Absent: distended, tenderness, guarding, rebound, rigid, pulsatile mass - Extremities Exam Extremities exam: Present: normal inspection, full ROM, normal capillary refill. Absent: pedal edema, joint swelling, calf tenderness - Back Exam Back exam: Present: normal inspection, full ROM. Absent: tenderness, CVA tenderness (R), paraspinal tenderness, vertebral tenderness - Neurological Exam Neurological exam: Present: alert, oriented X3, CN II-XII intact, normal gait ( normal gait, normal tandem gait, negative pronator drift, normal [id number].) , other (Extraocular movements intact. Tongue midline. No facial droop. Facial sensation intact to light touch in the V1, V2, V3 distribution bilaterally. 5 and 5 strength in 4 extremities.. Sensation is intact to light touch in 4 extremities.). Absent: motor sensory deficit - Psychiatric Psychiatric exam: Present: normal affect, normal mood - Skin Skin exam: Present: warm, dry, intact, normal color. Absent: rash ED Course Vital Signs 08/12/17 08/12/17 17:18 20:00 Temperature 98.8 F 98.8 F Pulse Rate 83 71 Respiratory 18 20 Rate Blood Pressure 121/73 Blood Pressure 116/59 [Right] O2 Sat by Pulse 99 98 Oximetry - Reevaluation(s) Reevaluation #1: 08/12/17 19:15 Differential diagnosis, including not limited to: Orthostasis, vagal event, arrhythmia, costochondritis, pulmonary embolus, structural cardiac disease, bronchitis Assessment and plan: 32-year-old female with history of unprovoked pulmonary embolus, elevated lupus anticoagulant, noncompliant with systemic anticoagulation, reports fatal family history of first degree relatives, with cough, chest wall pain, likely costochondritis, likely bronchitis, no focal pulmonary findings, nonspecific dizziness. Low risk by RYLAN score, low risk by heart score, troponin negative 1, as per [employer] clinical policy, myocardial infarction may be ruled out given her symptoms have present for greater than 8 hours. Has a GCS of 15, NIH score of 0 , walks with a steady gait, based on history and physical, hemorrhagic stroke very unlikely, venous sinus thrombosis very unlikely. Noncontrast CT scan of the brain is obtained. CT scan of the chest was obtained. Given the patient describes numerous nonspecific symptoms, I would like to exclude worsened or significant clot burden given description of dizziness. EKG unremarkable and appears unchanged from prior. I appreciate the patient's negative d-dimer, but I do not believe that this is adequate or sufficient to adequately risk stratify her, given that I do not consider the patient low pretest probability. Reevaluation #2: 08/12/17 20:[address] scan of the brain is negative. Repeat neurologic examination is unremarkable. It was somewhat improved. CT scan of the chest demonstrates very mild residual right-sided pneumonia, improved when compared to prior, resolution of large previously identified pulmonary emboli, but possible partial residual clot burden in the distal arterial branches. No indication of large clot burden at this time. Patient will be started on Lovenox, doxycycline , she will be instructed to follow-up with her outpatient bundle tier and labeler.Nursing staff to educated patient patient as to Lovenox administration. ED Medical Decision Making - Lab Data Result diagrams: 08/12/17 18:06 08/12/17 18:06 Labs 08/12/17 08/12/17 08/12/17 18:06 18:06 18:06 WBC 6.6 RBC 4.64 Hgb 13.7 Hct 40.1 MCV 86 MCH 30 MCHC 34 RDW 13.4 Plt Count 187 Lymph % (Auto) 39.7 H Mora % (Auto) 8.8 H Eos % (Auto) 4.5 H Baso % (Auto) 1.0 Lymph # 2.6 Mora # 0.6 Eos # 0.3 Baso # 0.1 Seg Neutrophils % 46.0 Seg Neutrophils # 3.0 PT 12.3 INR 0.87 APTT 26.9 D-Dimer 216.11 Sodium 142 Potassium 4.2 Chloride 102.4 Carbon Dioxide 25 Anion Gap 19 BUN 12 Creatinine 0.5 L Estimated GFR > 60 BUN/Creatinine Ratio 24 Glucose 74 Calcium 9.0 Troponin T < 0.010 Lab Results 08/12/17 08/12/17 08/12/17 Range/Units 18:06 18:06 18:06 WBC 6.6 (4.5-11.0) K/mm3 RBC 4.64 (3.65-5.03) M/mm3 Hgb 13.7 (10.1-14.3) gm/dl Hct 40.1 (30.3-42.9) % MCV 86 (79-97) fl MCH 30 (28-32) pg MCHC 34 (30-34) % RDW 13.4 (13.2-15.2) % Plt Count 187 (140-440) K/mm3 Lymph % (Auto) 39.7 H (13.4-35.0) % Mora % (Auto) 8.8 H (0.0-7.3) % Eos % (Auto) 4.5 H (0.0-4.3) % Baso % (Auto) 1.0 (0.0-1.8) % Lymph # 2.6 (1.2-5.4) K/mm3 Mora # 0.6 (0.0-0.8) K/mm3 Eos # 0.3 (0.0-0.4) K/mm3 Baso # 0.1 (0.0-0.1) K/mm3 Seg Neutrophils % 46.0 (40.0-70.0) % Seg Neutrophils # 3.0 (1.8-7.7) K/mm3 PT 12.3 (12.2-14.9) Sec. INR 0.87 (0.87-1.13) APTT 26.9 (24.2-36.6) Sec. D-Dimer 216.11 (0-234) ng/mlDDU Sodium 142 (137-145) mmol/L Potassium 4.2 (3.6-5.0) mmol/L Chloride 102.4 (98-107) mmol/L Carbon Dioxide 25 (22-30) mmol/L Anion Gap 19 mmol/L BUN 12 (7-17) mg/dL Creatinine 0.5 L (0.7-1.2) mg/dL Estimated GFR > 60 ml/min BUN/Creatinine Ratio 24 % Glucose 74 (65-100) mg/dL Calcium 9.0 (8.4-10.2) mg/dL Troponin T < 0.010 (0.00-0.029) ng/mL - EKG Data -: EKG Interpreted by Co - EKG Data 08/12/17 19:18 Sinus, 81 bpm, normal axis, motion artifact, normal intervals, unchanged from prior EKG from January 2017, not consistent with a STEMI - Radiology Data Radiology results: pending Critical care attestation.: If time is entered above; I have spent that time in minutes in the direct care of this critically ill patient, excluding procedure time. ED Disposition Clinical Impression: Pulmonary embolus, right, Pneumonia Disposition: DC-01 TO HOME OR SELFCARE Is pt being admited?: No Does the pt Need Aspirin: No Condition: Stable Instructions: Bacterial Pneumonia (ED) Additional Instructions: Discontinue Percocet, discontinue Ambien and sedating medications. Take the blood thinning medication as directed, and follow up with the bundle tier and labeler as soon as possible to continue outpatient specialist care. Take a breathing medication pain medications as needed/directed. Use the Lovenox blood thinning medication as needed/directed. Not taking this medication may result in worsening blood clot, which in turn can cause cardiac arrest and . Please follow up as recommended with the outpatient bioinformatics support specialist to coordinate outpatient care. Follow up with a primary care doctor within the next month. Dr. Moore is a local primary care doctor. Dr. Amaya is the bioinformatics support specialist that saw you in the hospital recently. Referrals: PRIMARY CARE, [Primary Care Provider] - 3-5 Days ONYEGBULA,DAVID C, DO [Staff Physician] - 3-5 Days MAILE MOORE MD [Staff Physician] - 3-5 Days
[2017-08-12] MEDS ORDERED: NACL ONE (18:31)
[2017-08-12 18:34] LABS: Basophils # (Auto) 0.1 K/mm3 (0.0-0.1); Eosinophils # (Auto) 0.3 K/mm3 (0.0-0.4); Eosinophils % (Auto) 4.5 % (0.0-4.3); Hematocrit 40.1 % (30.3-42.9); Hemoglobin 13.7 gm/dl (10.1-14.3); Lymphocytes # (Auto) 2.6 K/mm3 (1.2-5.4); Lymphocytes % (Auto) 39.7 % (13.4-35.0); Mean Corpuscular HGB Conc 34 % (30-34); Mean Corpuscular Hemoglobin 30 pg (28-32); Mean Corpuscular Volume 86 fl (79-97); Monocytes # (Auto) 0.6 K/mm3 (0.0-0.8); Monocytes % (Auto) 8.8 % (0.0-7.3); Platelet Count 187 K/mm3 (140-440); Red Blood Count 4.64 M/mm3 (3.65-5.03); Red Cell Distribution Width 13.4 % (13.2-15.2)
[2017-08-12 18:38] LABS: BUN/Creatinine Ratio 24; Blood Urea Nitrogen 12 mg/dL (7-17); Hemolysis Index 10
[2017-08-12 18:47] LABS: INR 0.87 (0.87-1.13)
[2017-08-12 18:48] LABS: Partial Thromboplastin Time 26.9 Sec. (24.2-36.6)
--- NOTE | 2017-08-12 20:06 | Cat Scan Report ---
FINAL REPORT EXAM: CT HEAD/BRAIN WO CON HISTORY: headache dizzy TECHNIQUE: Standard unenhanced CT of the head at 5.0 millimeter axial increments. PRIORS: None. FINDINGS: The ventricular system is normal in size and configuration. There is no evidence for parenchymal volume loss. There is no evidence for mass lesion, mass effect, midline shift, acute intracranial hemorrhage, or acute ischemia/ infarction. No evidence for acute skull fracture is seen. No abnormality in the overlying scalp soft tissues is seen. Visualized paranasal sinuses demonstrates mild mucosal thickening in the ethmoid air cells and in the right maxillary sinus. IMPRESSION: Mild chronic sinusitis in the ethmoid and right maxillary sinuses. No acute intracranial process noted.
--- NOTE | 2017-08-12 20:21 | Cat Scan Report ---
FINAL REPORT EXAM: CT ANGIO CHEST HISTORY: cp sob cough TECHNIQUE: Axial images were performed from the lung apices to the bases. Multiplanar reformats are performed on the acquisition scanner. Comparison: 07/16/2017 at which time nonocclusive right lower lobe segmental and subsegmental pulmonary embolus was identified and bilateral lower lobe infiltrates/atelectasis greater on the right with small right pleural effusion were noted FINDINGS: There is improved aeration in both lung bases with only mild residual consolidation in the right lung base. The previously identified right pleural effusion has resolved. There is adequate contrast bolus. Previously identified right lower lobe segmental and subsegmental embolus is no longer identified. It appears to have resolved. Minimal peripheral 3rd or 4th order branch embolus may still be present but not resolved on the current exam. Aorta has normal course and caliber. There is no other embolus identified. There is persistent mild right hilar adenopathy. There is mild soft tissue density in the anterior mediastinum conforming to the shape of the thymus. Finding likely represents residual thymus but thymic origin lesion cannot be excluded. The distal aorta is patulous. The imaged upper abdomen is unremarkable. Reconstructed images demonstrate no definite residual embolus. IMPRESSION: Marked improvement in the aeration in both lung bases with mild residual right basal consolidation. Resolved right pleural effusion. Resolve segmental and subsegmental right lower lobe pulmonary embolus. No pulmonary embolus is identified at the current time. However, there is mild right hilar adenopathy persisting. Recommend follow-up imaging in approximately 6-10 weeks after treatment. Mild soft tissue density in the anterior mediastinum which conforms to the triangular shape of the anterior mediastinum most suggestive of residual thymus. Thymic origin lesion however cannot be entirely excluded.
[2017-08-12] MEDS ORDERED: LOVENOX SUB-Q STA (20:37)
[2017-08-12 21:57] VITALS: BP 120/70
== END 2017-08-12 22:00 | disposition home or self-care (01) ==
LOC: ED 16:41
DX: J18.9 Pneumonia, unspecified organism (principal); I26.99 Other pulmonary embolism without acute cor pulmonale; F12.10 Cannabis abuse, uncomplicated; Z87.891 Personal history of nicotine dependence; Z88.8 Allergy status to other drugs, medicaments and biological substances
CPT/HCPCS: 36415; 70450; 71275; 80048; 84484; 85025; 85379; 85610; 85730; 93005; 93010; 96361; 96372; 96374; 96375; 99284; J1200; J1650; J2765; J7040; Q9967